=== PATIENT | female | born 1990 | race Caucasian/White ===

== ENCOUNTER 2016-10-31 07:23 | Emergency (ER) | payer BC ==
[2016-10-31] MEDS ORDERED: KETOROLAC 60 MG/2 ML VIAL IM ONE (09:03)
== END 2016-10-31 09:23 | disposition home or self-care (01) ==
LOC: ER 07:23
DX: M25.532 Pain in left wrist (principal); M25.531 Pain in right wrist; M79.642 Pain in left hand; M79.641 Pain in right hand; G89.11 Acute pain due to trauma; W18.39XA Other fall on same level, initial encounter; Y92.009 Unspecified place in unspecified non-institutional (private) residence as the place of occurrence of the external cause
CPT/HCPCS: 81025; 96372